=== PATIENT | female | born 1985 | race African-American/Black ===

== ENCOUNTER 2016-04-07 05:47 | Emergency (ER) | payer OTHER ==
[~2016-04-07] VITALS: Ht 167.6 cm; Wt 62.0 kg
[~2016-04-07 05:47] MED LIST: ZOFR4TAB3 PO
[2016-04-07 06:01] VITALS: BP 104/65; PULSE 82; RESP 16; TEMP 95.9; O2SAT 100
[2016-04-07] MEDS ORDERED: BENZ100 PO (06:18)
--- NOTE | 2016-04-07 06:22 | PD ---
HPI Chief Complaint: Cold / Flu Symptoms Time Seen by Provider: 06:10 Travel History International Travel<30 days: No Contact w/Intl Traveler<30days: No Traveled to known affect area: No History of Present Illness HPI This is a 30-year-old female with no significant past medical history presents for evaluation of a cough. Symptoms started 4-5 days ago. The cough is productive with white yellow phlegm production. There is associated nasal congestion. She denies fevers, chills, myalgias, rash, recent travel, stiff neck. No sick contacts. She has been using [id number] cough and cold medications but symptoms persist. Coughing is worse at night which prompted evaluation. She has no other complaints at this time. PFSH Past Medical History Hx Anticoagulant Therapy: No Cardiovascular Problems: No Chemotherapy: No Cerebrovascular Accident: No Diabetes: No Diminished Hearing: No Respiratory: No ?: Not LMP: 2 WKS AGO : 1 Para: 1 Social History Alcohol Use: No Tobacco Use: No Substance Use: No Allergies-Medications (Allergen,Severity, Reaction): Coded Allergies: No Known Allergies (Verified , 04/07/16) Reported Meds & Prescriptions Reported Meds & Active Scripts Active Tessalon Perles (Benzonatate) 100 Mg Cap 200 Mg PO TID PRN Zofran ODT (Ondansetron HCl) 4 Mg Tab 4 Mg PO Q8HR PRN Review of Systems Except as stated in HPI: all other systems reviewed are Neg Physical Exam Narrative GENERAL: Pleasant well-developed well-nourished female in no acute distress SKIN: Warm and dry. HEAD: Atraumatic. Normocephalic. EYES: Pupils equal and round. No scleral icterus. No injection or drainage. ENT: No nasal bleeding or discharge. Mucous membranes pink and moist. NECK: Trachea midline. No JVD. CARDIOVASCULAR: Regular rate and rhythm. No murmur appreciated. RESPIRATORY: No accessory muscle use. Clear to auscultation. Breath sounds equal bilaterally. Data Data Last Documented VS Vital Signs Date Time Temp Pulse Resp B/P Pulse Ox O2 Delivery O2 Flow Rate FiO2 04/07/16 06:01 95.9 82 16 104/65 100 Orders Benzonatate (Tessalon) (04/07/16 06:30) [facility] Medical Decision Making Medical Screen Exam Complete: Yes Emergency Medical Condition: Yes Medical Record Reviewed: Yes Differential Diagnosis Bronchitis, pneumonia, reactive airway disease, bronchiolitis, bronchiectasis, sinusitis, influenza pertussis, tuberculosis Narrative Course This is a 30-year-old female who presents with 4-5 days of cough and congestion. Physical examination is reassuring. Her lungs sound clear and she appears to have a viral upper respiratory infection. The patient will be discharged with Tessalon to use as a cough suppressant. She is stable for discharge. Diagnosis Primary Impression: Upper respiratory infection Qualified Code: J06.9 - Upper respiratory tract infection, unspecified type Departure Forms: Tests/Procedures, Work Release Enter return to work date: Apr 08, 2016 Additional Instructions: Use [id number] dextromethorphan active ingredient as a cough suppressant. Tessalon for breakthrough cough. Stay well-hydrated and well-nourished. Follow-up closely with primary care physician. Return for any emergent medical conditions. Med/Other Pt SpecificInfo: Prescription(s) given Scripts Benzonatate (Tessalon Perles)100 Mg [id number] Mg PO TID PRN (COUGH) #30 CAP Ref 0 Prov:Margi Weaver MD 04/07/16 Disposition: 01 DISCHARGE HOME Condition: Stable Dereck Duncan Apr 07, 2016 06:22
[2016-04-07] MEDS ORDERED: BENZONATATE 100 MG CAP PO ONE (06:30)
== END 2016-04-07 06:36 | disposition home or self-care (01) ==
LOC: NEPB 05:47
DX: J06.9 Acute upper respiratory infection, unspecified (principal)
CPT/HCPCS: 99283

== ENCOUNTER 2016-12-10 16:25 | Emergency (ER) | payer SELFPAY ==
[~2016-12-10] VITALS: Ht 167.6 cm; Wt 65.0 kg
[~2016-12-10 16:25] MED LIST changes: +BENZ100 PO
[2016-12-10 16:26] VITALS: BP 121/66; PULSE 85; RESP 16; TEMP 98.2; O2SAT 98
--- NOTE | 2016-12-10 17:01 | PD ---
HPI . feeling sad about losing her job/wants resources for counseling Chief Complaint: Psychiatric Symptoms Time Seen by Provider: 16:54 Travel History International Travel<30 days: No Contact w/Intl Traveler<30days: No Traveled to known affect area: No History of Present Illness HPI 31-year-old female with no significant past medical history here requesting resources for counseling. 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 She says she is very down about it as she has children to support. She denies any suicide or homicidal ideation. She denies any intentions of harming anyone or anything. He actually does not want medications. She says she is here looking for resources for counseling that are free because she does not have insurance. She didn't know where else to go. She needs to get back home to her children. PFSH Past Medical History Hx Anticoagulant Therapy: No Cardiovascular Problems: No Chemotherapy: No Cerebrovascular Accident: No Diabetes: No Diminished Hearing: No Respiratory: No ?: Not : 1 Para: 1 Social History Alcohol Use: No Tobacco Use: No Substance Use: No Allergies-Medications (Allergen,Severity, Reaction): Coded Allergies: No Known Allergies (Verified , 04/07/16) Reported Meds & Prescriptions Reported Meds & Active Scripts Active No Active Prescriptions or Reported Medications Review of Systems General / Constitutional: No: Fever Eyes: No: Visual changes HENT: No: Headaches Cardiovascular: No: Chest Pain or Discomfort Respiratory: No: Shortness of Breath Gastrointestinal: No: Abdominal Pain Genitourinary: No: Dysuria Musculoskeletal: No: Pain Skin: No Rash Neurologic: No: Weakness Psychiatric: Positive: Depression, No: Anxiety, Suicidal Ideations, Disorder of Thought, Homicidal Ideation Endocrine: No: Polydipsia Hematologic/Lymphatic: No: Easy Bruising Physical Exam Narrative GENERAL: AAO x 3, no acute distress, Well-nourished, well-developed patient. SKIN: Warm and dry. No visible rashes or bruising. HEAD: Normocephalic and atraumatic. EYES: No scleral icterus. No injection or drainage. EOM intact, PERRLA ENT: No nasal drainage noted. Mucous membranes pink. Airway patent. NECK: Supple, trachea midline. No JVD. CARDIOVASCULAR: Regular rate and rhythm without murmurs, gallops, or rubs. RESPIRATORY: Breath sounds equal bilaterally. No accessory muscle use. No rhonchi or rales. GASTROINTESTINAL: Abdomen soft, non-tender, nondistended. EXTREMITIES: No cyanosis or edema. BACK: Nontender without obvious deformity. No CVA tenderness. NEURO: CN II-12 intact, quality control chemist strength normal b/l, UE and LE 5/5, no focal deficits PSYCH: AAO x 3, normal affect. Data Data Last Documented VS Vital Signs Date Time Temp Pulse Resp B/P (MAP) Pulse Ox O2 Delivery O2 Flow Rate FiO2 12/10/16 16:26 98.2 85 16 121/66 (84) 98 MDM Medical Decision Making Medical Screen Exam Complete: Yes Emergency Medical Condition: Yes Medical Record Reviewed: Yes Differential Diagnosis adjustment disorder, depression, less likely drug induced mood disorder Narrative Course 31 yr old female here requesting resources for counseling. She is actually not wanting medications and says she needs to talk to someone since she recently lost her job. I do not believe having this patient sit here for a psych screen and labs would be worthwhile. She is in her correct frame of mind and truly just saddened due to recent job loss. She would benefit from outpatient counseling. I have provided her with resources for [facility]. I have discussed the case with my attending Dr. Moreno and he is in agreement with the plan. Patient does not pose a threat to herself or others. This seems to be an adjustment disorder to her recent job loss. I have contacted Ashly Rogel, dynamo tender and she will assist with helping find resources. district operations manager spoke with the patient and she is ready to go. I have cleared her for discharge as I believe she can been seen on an outpatient basis. Diagnosis Primary Impression: Adjustment disorder Qualified Codes: F43.20 - Adjustment disorder, unspecified Referrals: [facility] Patient Instructions: General Instructions Additional Instructions: Please look into following up with [facility]. Med/Other Pt SpecificInfo: No Meds Exist/No RX given Scripts No Active Prescriptions or Reported Meds Disposition: 01 DISCHARGE HOME Condition: Stable Serena Pantoja Dec 10, 2016 17:01
== END 2016-12-11 00:34 | disposition home or self-care (01) ==
LOC: NEPD 16:25
DX: F43.20 Adjustment disorder, unspecified (principal)
CPT/HCPCS: 99282